=== PATIENT | female | born 1945 | race Caucasian/White ===

== ENCOUNTER 2018-07-21 14:45 | Emergency (ER) | payer MEDICARE, OTHER ==
[~2018-07-21] VITALS: Ht 149.9 cm; Wt 99.8 kg
--- OUTSIDE RECORDS SUMMARY | 2018-07-21 14:52 | XMS REPORT | Continuity of Care Document ---
Author Organization Unknown Address Unknown Allergies There is no data. Medications There is no data. Problems There is no data. Procedures There is no data. Results There is no data. Encounters ACCT No. Visit Date/Time Discharge Status Pt. Type Provider Facility Loc./Unit Complaint [id number] 07/09/2018 10:45:00 07/09/2018 23:59:59 CLS Outpatient SELF, JASEN Benjamin [facility]
--- NOTE | 2018-07-21 15:33 | ED Neurological Problem ---
General Chief Complaint: Neuro-Stroke Like Symptoms Stated Complaint: STROKE SYMPTOMS Source: patient, RN notes reviewed Exam Limitations: no limitations History of Present Illness Date Seen by Provider: Jul 21, 2018 Time Seen by Provider: 15:00 Timing/Duration: other Allergies and Home Medications Allergies Coded Allergies: meperidine (Verified Allergy, Unknown, 07/21/18) Physical Exam Vital Signs Capillary Refill : Height, Weight, BMI Height: '" Weight: lbs. oz. kg; BMI Method: Progress/Results/Core Measures Results/Orders Lab Results Laboratory Tests Test 07/21/18 15:13 07/21/18 15:22 07/21/18 15:46 Range/Units White Blood Count 6.5 4.3-11.0 10^3/uL Red Blood Count 5.06 4.35-5.85 10^6/uL Hemoglobin 14.9 11.5-16.0 G/DL Hematocrit 45 35-52 % Mean Corpuscular Volume 90 80-99 FL Mean Corpuscular Hemoglobin 29 25-34 PG Mean Corpuscular Hemoglobin Concent 33 32-36 G/DL Red Cell Distribution Width 14.3 10.0-14.5 % Platelet Count 175 130-400 10^3/uL Mean Platelet Volume 9.8 7.4-10.4 FL Neutrophils (%) (Auto) 73 42-75 % Lymphocytes (%) (Auto) 18 12-44 % Monocytes (%) (Auto) 6 0-12 % Eosinophils (%) (Auto) 3 0-10 % Basophils (%) (Auto) 0 0-10 % Neutrophils # (Auto) 4.7 1.8-7.8 X 10^3 Lymphocytes # (Auto) 1.2 1.0-4.0 X 10^3 Monocytes # (Auto) 0.4 0.0-1.0 X 10^3 Eosinophils # (Auto) 0.2 0.0-0.3 10^3/uL Basophils # (Auto) 0.0 0.0-0.1 10^3/uL Prothrombin Time 12.7 12.2-14.7 SEC INR Comment 0.9 0.8-1.4 Activated Partial Thromboplast Time 25 24-35 SEC Sodium Level 133 L 135-145 MMOL/L Potassium Level 8.2 *H 3.6-5.0 MMOL/L Chloride Level 102 98-107 MMOL/L Carbon Dioxide Level 21 21-32 MMOL/L Anion Gap 5-14 MMOL/L Blood Urea Nitrogen 36 H 7-18 MG/DL Creatinine 1.80 H 0.60-1.30 MG/DL Estimat Glomerular Filtration Rate 28 BUN/Creatinine Ratio 20 Glucose Level 253 H 70-105 MG/DL Calcium Level 9.5 8.5-10.1 MG/DL Corrected Calcium 9.1 8.5-10.1 MG/DL Total Bilirubin 0.2 0.1-1.0 MG/DL Aspartate Amino Transf (AST/SGOT) 13 5-34 U/L Alanine Aminotransferase (ALT/SGPT) 15 0-55 U/L Alkaline Phosphatase 72 40-136 U/L Total Protein 7.3 6.4-8.2 GM/DL Albumin 4.5 3.2-4.5 GM/DL Glucometer 208 H 70-110 MG/DL Urine Color YELLOW Urine Clarity CLEAR Urine pH 5.0 5-9 Urine Specific [place] 1.025 H 1.016-1.022 Urine Protein 1+ H NEGATIVE Urine Glucose (UA) TRACE H NEGATIVE Urine Ketones NEGATIVE NEGATIVE Urine Nitrite NEGATIVE NEGATIVE Urine Bilirubin NEGATIVE NEGATIVE Urine Urobilinogen 0.2 NORMAL MG/DL Urine Leukocyte Esterase 1+ H NEGATIVE Urine RBC (Auto) NEGATIVE NEGATIVE Urine RBC NONE /HPF Urine WBC 2.5 /HPF Urine Squamous Epithelial Cells 2+5 /HPF Urine Crystals NONE /LPF Urine Bacteria FEW H /HPF Urine Casts NONE /LPF Urine Mucus SMALL H /LPF Urine Culture Indicated NO My Orders Orders - ANTONI ABRAHAM DO Cbc With Automated Diff (07/21/18 15:13) Protime With Inr (07/21/18 15:13) Partial Thromboplastin Time (07/21/18 15:13) Comprehensive Metabolic Panel (07/21/18 15:13) Ua Culture If Indicated (07/21/18 15:13) Chest 1 View Ap/Pa Only (07/21/18 15:13) Ekg Tracing (07/21/18 15:13) Nothing By Mouth (07/21/18 Dinner) Accucheck Stat ONCE (07/21/18 15:13) Ed Iv/Invasive Line Start (07/21/18 15:13) Vital Signs Stroke Patient Q15M (07/21/18 15:13) Ct Head Wo-R/O Stroke (07/21/18 15:13) Monitor-Rhythm Ecg Trace Only (07/21/18 15:13) Dysphagia Screening Tool (07/21/18 15:13) Albuterol Pre-Mix Nebs (Rt) (Proventil (07/21/18 16:32) Svn Small Volume Nebulizer (07/21/18 16:32) D50w (Emergency) Syringe (Dextrose 50% 5 (07/21/18 16:45) Insulin (Regular) Human (Humulin R (Per (07/21/18 16:32) Sodium Polystyrene Sulfonate (Kayexalate (07/21/18 16:45) Ns Iv 1000 Ml (Sodium Chloride 0.9%) (07/21/18 16:45) Calcium Gluconate 10% Inj (Calcium Glu (07/21/18 17:45) Medications Given in ED Current Medications Medications Dose Ordered Sig/Beatriz Route Start Time Stop Time Status Last Admin Dose Admin Dextrose 50 ml ONCE ONCE IV 07/21/18 16:45 07/21/18 16:46 DC 07/21/18 17:07 50 ML Sodium Polystyrene Sulfonate 30 gm ONCE ONCE HI 07/21/18 16:45 07/21/18 16:46 DC 07/21/18 17:03 30 GM Departure Impression Primary Impression: Hyperkalemia Additional Impression: Right sided weakness Disposition: 02 XFER SHT-TRM HOSP Condition: Stable Transfer Time Spoke to Accepting Phy: 17:31 Transfer Progress Notes Discussed c/ Dr. oRssi (Neuro) and she will see the patient in consultation. Spoke c/ Dr. Alamo (Hospitalist) and he has accepted the patient in transfer. Transfer Facility: [facility] (patient's choice) Method of Transfer: EMS Departure-Patient Inst. Referrals: SELF,JASEN THORNTON (PCP/Family) Primary Care Physician ANTONI ABRAHAM DO Jul 21, 2018 15:33
--- NOTE | 2018-07-21 15:42 | Diagnostic Imaging Report ---
INDICATION: Shortness of air. COMPARISON: None. FINDINGS: Single frontal view of the chest demonstrates normal heart size and pulmonary vascularity. The lungs are well aerated and clear. No large pleural effusion or pneumothorax is seen. The visualized osseous structures show no acute abnormalities. IMPRESSION: 1. No acute cardiopulmonary process. Dictated by: Dictated on workstation # [id number]
--- NOTE | 2018-07-21 15:44 | Diagnostic Imaging Report ---
Indication: Right-sided weakness x3 days. Noncontrast brain CT is performed. There were no extra-axial fluid collections. No intracranial hemorrhage. No intracranial mass or mass effect. No midline shift. Ventricles are normal in size and position. There are no overt focal parenchymal abnormalities in the brain. Calvarial windows are unremarkable. Impression: Negative noncontrast brain CT. Consider MRI of the brain if symptoms persist. Dictated by: Dictated on workstation # [id number]
[2018-07-21 15:55] LABS: HEMATOCRIT 45 % (35-52); HEMOGLOBIN 14.9 G/DL (11.5-16.0); MEAN CORPUSCULAR HEMOGLOBIN 29 PG (25-34); MEAN CORPUSCULAR HGB CONC 33 G/DL (32-36); MEAN CORPUSCULAR VOLUME 90 FL (80-99); WHITE BLOOD COUNT 6.5 10^3/uL (4.3-11.0)
[2018-07-21 15:56] LABS: BASOPHILS % (AUTO) 0 % (0-10); EOSINOPHILS # (AUTO) 0.2 10^3/uL (0.0-0.3); EOSINOPHILS % (AUTO) 3 % (0-10); LYMPHOCYTES # (AUTO) 1.2 X 10^3 (1.0-4.0); LYMPHOCYTES % (AUTO) 18 % (12-44); MEAN PLATELET VOLUME 9.8 FL (7.4-10.4); MONOCYTES # (AUTO) 0.4 X 10^3 (0.0-1.0); MONOCYTES % (AUTO) 6 % (0-12); NEUTROPHILS # (AUTO) 4.7 X 10^3 (1.8-7.8); NEUTROPHILS % (AUTO) 73 % (42-75); PLATELET COUNT 175 10^3/uL (130-400); RED CELL DISTRIBUTION WIDTH 14.3 % (10.0-14.5)
[2018-07-21 16:00] LABS: BACTERIA,URINE FEW /HPF; BILIRUBIN,URINE NEGATIVE (NEGATIVE); CLARITY,URINE CLEAR; COLOR,URINE YELLOW; GLUCOSE, URINE (UA) TRACE (NEGATIVE); KETONES,URINE NEGATIVE (NEGATIVE); LEUKOCYTE ESTERASE ,URINE 1+ (NEGATIVE); NITRITE,URINE NEGATIVE (NEGATIVE); PROTEIN,URINE 1+ (NEGATIVE); SQUAMOUS EPITHELIAL CELL,UR 2+5 /HPF; UROBILINOGEN,URINE 0.2 MG/DL (NORMAL); WBC,URINE 2.5 /HPF
--- NOTE | 2018-07-21 16:00 | NUR ---
Jennifer nair in ED - 07/21/18 at 1846 by [email or web address] CRITICAL LAB POTASSIUM LEVEL 8.[address] ABRAHAM AT THIS TIME.
[2018-07-21 16:05] LABS: INR 0.9 (0.8-1.4); PROTHROMBIN TIME PATIENT 12.7 SEC (12.2-14.7)
[2018-07-21 16:24] LABS: ALANINE AMINOTRANSFERASE 15 U/L (0-55); ALBUMIN 4.5 GM/DL (3.2-4.5); ALKALINE PHOSPHATASE 72 U/L (40-136); BILIRUBIN,TOTAL 0.2 MG/DL (0.1-1.0); BUN/CREATININE RATIO 20; CALCIUM 9.5 MG/DL (8.5-10.1); CARBON DIOXIDE 21 MMOL/L (21-32); CHLORIDE 102 MMOL/L (98-107); GFR ESTIMATED 28; GLUCOSE 253 MG/DL (70-105); SODIUM 133 MMOL/L (135-145); TOTAL PROTEIN 7.3 GM/DL (6.4-8.2)
[2018-07-21 16:27] LABS: POTASSIUM 8.2 MMOL/L (3.6-5.0)
--- NOTE | 2018-07-21 16:30 | NUR ---
CRITICAL LAB VALUE OF POTASSIUM 8.[address] ABRAHAM AT THIS TIME.
[2018-07-21] MEDS ORDERED: RT-ALBUTEROL SULF 2.5 MG/3 ML PRE-MIX VIAL INH STA (16:32)
[2018-07-21] MEDS ORDERED: inSUlin (REGULAR) HUMAN 1 UNIT/0.01 ML (CHARGE PER UNIT) IJ STA (16:32)
[2018-07-21] MEDS ORDERED: SOD POLYSTERENE 15 GM/60 ML (KAYEXALATE) UNIT DOSE PR ONE (16:45)
[2018-07-21] MEDS ORDERED: NS IV 1000 ML 1,000 ML IV SCH (16:45)
[2018-07-21] MEDS ORDERED: DEXTROSE 50% 50 ML (IMS) SYR IV ONE (16:45)
[2018-07-21] MEDS ORDERED: CALCIUM GLUCONATE 10% INJ 4.65 MEQ in NS (IVPB) 50 ML IV ONE (17:45)
[2018-07-21] MEDS ORDERED: D5W 100 ML IVPB 100 ML IV ONE (18:00)
[2018-07-21] MEDS ORDERED: CALCIUM GLUC. 10% 4.65 MEQ/10 ML VIAL IV ONE (18:15)
[2018-07-21] MEDS ORDERED: ALLO100T PO (18:50)
[2018-07-21] MEDS ORDERED: SPIR25TA5 PO (18:50)
[2018-07-21] MEDS ORDERED: POTA20TA15 PO (18:50)
[2018-07-21] MEDS ORDERED: LISI-552 PO (18:50)
[2018-07-21] MEDS ORDERED: TRAM50TA2 PO (18:50)
[2018-07-21] MEDS ORDERED: METO100T12 PO (18:50)
[2018-07-21] MEDS ORDERED: BIOT10006 PO (18:50)
[2018-07-21] MEDS ORDERED: OMEP40CA36 PO (18:50)
[2018-07-21] MEDS ORDERED: INSU100C3 SQ (18:50)
[2018-07-21] MEDS ORDERED: ATOR20TA66 PO (18:50)
[2018-07-21] MEDS ORDERED: AMLO10TA7 PO (18:50)
[2018-07-21] MEDS ORDERED: INSU100I29 SQ (18:50)
[2018-07-21] MEDS ORDERED: GLIP5TAB13 PO (18:50)
[2018-07-21] MEDS ORDERED: ASPI81TA16 PO (18:50)
[2018-07-21 19:41] VITALS: BP 163/86
== END 2018-07-21 19:41 | disposition short-term general hospital (02) ==
LOC: EDUNIT# 14:45 → ER FS 14:48
DX: E87.5 Hyperkalemia (principal); M62.81 Muscle weakness (generalized); Z88.8 Allergy status to other drugs, medicaments and biological substances
CPT/HCPCS: 36415; 70450; 71045; 80053; 81000; 82962; 85025; 85610; 85730; 93005; 93041; 96361; 96374; 96375

== ENCOUNTER 2021-07-05 14:17 | Emergency (ER) | payer MEDICARE ==
[~2021-07-05] VITALS: Ht 149 cm; Wt 93.0 kg
[~2021-07-05 14:17] MED LIST: ALLO100T PO; AMLO-251 PO; ASPI81TA16 PO; ATOR20TA66 PO; BIOT10006 PO; GLIP5TAB13 PO; INSU100C3 SQ; INSU100I29 SQ; LISI20TA26 PO; METO100T12 PO; OMEP40CA6 PO; POTA-179 PO; SPIR25TA5 PO; TRM50T PO
--- NOTE | 2021-07-05 14:53 | ED Upper Extremity ---
General Chief Complaint: Upper Extremity Stated Complaint: RT ARM INJ Nursing Triage Note: patient was leaving her home, there was a ditch with water. patient jumped the ditch fell and injured right upper extremity Source: patient Exam Limitations: no limitations History of Present Illness Date Seen by Provider: Jul 05, 2021 Time Seen by Provider: 14:20 Initial Comments Patient is a 75-year-old female who presents with right arm and elbow pain after falling from standing. Patient was attempting to step over a pothole when she landed on concrete. Denies hitting her head, headache and neck pain. She is not on coagulation therapy. Onset: just prior to arrival Severity: moderate Pain/Injury Location: right arm, right elbow, right forearm Method of Injury: other Modifying Factors: Improves With Other Allergies and Home Medications Allergies Coded Allergies: meperidine (Verified Allergy, Unknown, 07/21/18) rosuvastatin (Verified Allergy, Unknown, 07/05/21) Patient Home Medication List Home Medication List Reviewed: Yes Allopurinol (Allopurinol) 100 Mg Tablet, 100 MG PO BID, (Reported) Entered as Reported by: BLANCA SCHERER on 07/21/181849 Amlodipine Besylate (Amlodipine Besylate) 10 Mg Tablet, 10 MG PO DAILY, (Reported) Entered as Reported by: BLANCA SCHERER on 07/21/181849 Aspirin (Low Dose Aspirin EC) 81 Mg Tablet.dr, 81 MG PO DAILY, (Reported) Entered as Reported by: BLANCA SCHERER on 07/21/181849 Atorvastatin Calcium (Atorvastatin Calcium) 20 Mg Tablet, 20 MG PO DAILY, (Reported) Entered as Reported by: BLANCA SCHERER on 07/21/181849 Biotin (Biotin) 10,000 Mcg Tab.rapdis, 10,000 MCG PO DAILY, (Reported) Entered as Reported by: BLANCA SCHERER on 07/21/181849 Glipizide (Glipizide) 5 Mg Tablet, 5 MG PO BID, (Reported) Entered as Reported by: BLANCA SCHERER on 07/21/181849 Insulin Aspart (Novolog) 300 Units/3 Ml Cartridge, 10-20 UNITS SQ TID, (Reported) Entered as Reported by: BLANCA SCHERER on 07/21/181849 Insulin Detemir (Levemir Flextouch) 100 Unit/1 Ml Insuln.pen, 60 UNIT SQ DAILY, (Reported) Entered as Reported by: BLANCA SCHERER on 07/21/181849 Lisinopril (Lisinopril) 20 Mg Tablet, 20 MG PO BID, (Reported) Entered as Reported by: BLANCA SCHERER on 07/21/181849 Metoprolol Tartrate (Metoprolol Tartrate) 100 Mg Tablet, 100 MG PO BID, (Reported) Entered as Reported by: BLANCA SCHERER on 07/21/181849 Omeprazole (Omeprazole) 40 Mg Capsule.dr, 40 MG PO DAILY, (Reported) Entered as Reported by: BLANCA SCHERER on 07/21/181849 Potassium Chloride (Potassium Chloride) 20 Meq Tab.er.prt, 30 MEQ PO DAILY, (Reported) Entered as Reported by: BLANCA SCHERER on 07/21/181849 Spironolactone (Spironolactone) 25 Mg Tablet, 25 MG PO DAILY, (Reported) Entered as Reported by: BLANCA SCHERER on 07/21/181849 Tramadol HCl (Tramadol HCl) 50 Mg Tablet, 50-100 MG PO Q6H PRN for PAIN-MILD, (Reported) Entered as Reported by: BLANCA SCHERER on 07/21/181849 Review of Systems Constitutional: see HPI EENTM: see HPI Respiratory: see HPI Cardiovascular: see HPI Musculoskeletal: joint pain, joint swelling, muscle stiffness Skin: no symptoms reported, see HPI Psychiatric/Neurological: No Symptoms Reported Past Dlfaomf-Jwbpux-Dizjgl Hx Patient Social History Tobacco Use?: Yes Substance use?: No Alcohol Use?: No Immunizations Up To Date Influenza Vaccine Up-to-Date: Yes; Up-to-Date Seasonal Allergies Seasonal Allergies: No Past Medical History Surgery/Hospitalization HX: appendectomy,cholecystectomy,hystrectomy, hernia repair, Surgeries: Yes Nephrectomy Respiratory: No Cardiac: Yes High Cholesterol, Hypertension Neurological: No Genitourinary: No Gastrointestinal: Yes Gastroesophageal Reflux Musculoskeletal: Yes Gout Endocrine: Yes Diabetes, Insulin dep HEENT: No Cancer: No Psychosocial: No Integumentary: No Blood Disorders: No Physical Exam Vital Signs Vital Signs - First Documented 07/05/21 14:33 Temp 36.8 Pulse 70 Resp 20 B/P (MAP) 145/103 (117) Pulse Ox 98 O2 Delivery Room Air Capillary Refill : Less Than 3 Seconds Height, Weight, BMI Height: 4'11.00" Weight: 220lbs. oz. 99.689952nw; 41.00 BMI Method:Stated General Appearance: no apparent distress HEENT: PERRL/EOMI, pharynx normal Neck: non-tender, full range of motion, supple Cardiovascular: normal peripheral pulses, regular rate, rhythm Respiratory: lungs clear Gastrointestinal: non tender, soft Back: normal inspection, no CVA tenderness Shoulder: normal inspection, non-tender, normal ROM Elbow/Forearm: Right (Humerus, elbow and forearm soft tissue tenderness, pain range of motion. No deformities.) Progress/Results/Core Measures Results/Orders My Orders Orders - MARIA ELENA LEYVA DO Humerus 2 View Right (07/05/21 14:38) Elbow 3 View Right (07/05/21 14:38) Forearm 2 View Right (07/05/21 14:38) Vital Signs/I&O 07/05/21 14:33 Temp 36.8 Pulse 70 Resp 20 B/P (MAP) 145/103 (117) Pulse Ox 98 O2 Delivery Room Air Blood Pressure Mean: 117 Departure Communication (Admissions) XR right humerus/elbow/forearm: Acute right humeral head fracture Patient placed in splint and sling with orthopedic referral. No neurovascular deficits. Pain addressed. Impression Primary Impression: Radial head fracture, closed Disposition: 01 HOME, SELF-CARE Condition: Stable Departure-Patient Inst. Decision time for Depature: 14:53 Referrals: ABA VILLASEÑOR MD (PCP) Primary Care Physician Patient Instructions: Radius Fracture (DC) Add. Discharge Instructions: Please wear splint and sling. Take ibuprofen and tramadol as needed for pain. Follow-up with orthopedic physician in the next 3 to 5 days for reevaluation. Return to the ED if new or worsening symptoms. All discharge instructions reviewed with patient and/or family. Voiced understanding. Scripts Tramadol HCl (Tramadol HCl) 50 Mg Tablet 50-100 MG PO Q6H PRN for PAIN for 3 Days, #20 TAB 0 Refills Prov: MARIA ELENA LEYVA DO 07/05/21 MARIA ELENA LEYVA DO Jul 05, 2021 14:53
--- NOTE | 2021-07-05 14:54 | Diagnostic Imaging Report ---
INDICATION: Right humeral pain. AP and lateral views of the right humerus are obtained. No fracture or acute bony abnormality is seen. IMPRESSION: Negative right humerus. Dictated by: Dictated on workstation # [id number]
--- NOTE | 2021-07-05 14:58 | Diagnostic Imaging Report ---
INDICATION: Fall with right forearm pain. TECHNIQUE: AP and lateral views of the right forearm were obtained at 2:48 PM. FINDINGS: There is an acute fracture of the radial head. The remainder of the radius and ulna is intact. IMPRESSION: Acute radial head fracture. Dictated by: Dictated on workstation # [id number]
--- NOTE | 2021-07-05 15:03 | Diagnostic Imaging Report ---
INDICATION: Pain after fall. EXAMINATION: Right elbow from 07/05/2021. FINDINGS: Three views of the elbow. There is elevation of the anterior fat pad secondary to a joint effusion. A displaced fracture of the radial head is noted with the fracture fragment displaced by approximately 3 mm. Osseous fragments adjacent to the lateral epicondyle appear well corticated, perhaps due to a history of lateral epicondylitis. The remaining osseous structures are intact. No dislocations. IMPRESSION: 1. Radial head fracture with secondary joint effusion. 2. Not mentioned above, there is nonspecific hyperdensity along the anterior aspect of the joint of uncertain etiology. This could represent a focal calcification. Follow-up recommended for reevaluation. Dictated by: Dictated on workstation # [id number]
[2021-07-05] MEDS ORDERED: TRM50T PO (15:12)
[2021-07-05 16:14] VITALS: BP 172/86
== END 2021-07-05 15:55 | disposition home or self-care (01) ==
LOC: EDUNIT# 14:17 → ER FS 14:21
DX: S52.121A Displaced fracture of head of right radius, initial encounter for closed fracture (principal); E11.9 Type 2 diabetes mellitus without complications; Z79.4 Long term (current) use of insulin; W18.30XA Fall on same level, unspecified, initial encounter
CPT/HCPCS: 29105; 73060; 73080; 73090

== ENCOUNTER → 2021-07-13 | Outpatient (CLI) | payer MEDICARE | LOC: ORTHO 16:36 | PROVIDERS: ATTEND Orthopaedic Surgery | DX: S52.121D Displaced fracture of head of right radius, subsequent encounter for closed fracture with routine healing (principal); X58.XXXD Exposure to other specified factors, subsequent encounter ==

== ENCOUNTER → 2021-07-24 | Outpatient (CLI) | payer MEDICARE ==
--- NOTE | 2021-07-24 15:40 | Diagnostic Imaging Report ---
INDICATION: Fracture of the head of the radius. Followup. EXAMINATION: Right elbow, 3 views, on 07/24/2021. COMPARISON: 07/05/2021. FINDINGS: Again seen is a fracture of the radial head with incomplete healing at this time. A small avulsion fracture fragment is seen along its anterior border. A nonspecific linear density at the radiocapitellar joint space is noted, stable from previous imaging. There are densities along the lateral aspect of the lateral epicondyle, perhaps due to old fracture or heterotopic ossification. These findings are stable from previous imaging. Spurring throughout the joint is noted. There is a small persistent joint effusion. IMPRESSION: Stable appearing radial head fracture with the remaining changes chronic in appearance. Dictated by: Dictated on workstation # [id number]
== END ==
LOC: RAD FS 14:56
PROVIDERS: ATTEND Orthopaedic Surgery
DX: S52.121D Displaced fracture of head of right radius, subsequent encounter for closed fracture with routine healing (principal); X58.XXXD Exposure to other specified factors, subsequent encounter
CPT/HCPCS: 73080

== ENCOUNTER → 2021-07-27 | Outpatient (CLI) | payer MEDICARE | LOC: ORTHO 14:01 | PROVIDERS: ATTEND Orthopaedic Surgery | DX: S52.501D Unspecified fracture of the lower end of right radius, subsequent encounter for closed fracture with routine healing (principal); X58.XXXD Exposure to other specified factors, subsequent encounter ==

== ENCOUNTER → 2021-08-18 | Outpatient (CLI) | payer MEDICARE ==
--- NOTE | 2021-08-18 15:43 | Diagnostic Imaging Report ---
INDICATION: Closed fracture of the radial head, pain. COMPARISON: 07/24/2021. TECHNIQUE: Three radiographs of the right elbow dated 08/18/2021. FINDINGS: Fracturing of the radial head with intra-articular extension to the elbow joint is again identified. Fracture lucency is better visualized than on the prior examination. There is slight blurring of the fracture margins. No definite osseous bridging seen at this time. No new fracture or dislocation. No destructive osseous process. Calcifications adjacent to the medial and lateral epicondyle are again identified and stable. A small elbow joint effusion is again identified and stable. Improved soft tissue swelling involving the dorsum of the elbow and forearm. IMPRESSION: Persistent fracturing of the radial head with intra-articular extension remaining in stable alignment. Fracture plane is better visualized on this examination, which could relate to resorption and early healing. Recommend continued radiographic follow-up to ensure healing as no definite osseous bridging is identified at this time. No new acute osseous abnormality with stable small elbow joint effusion. Dictated by: Dictated on workstation # [id number]
== END ==
LOC: RAD FS 14:49
PROVIDERS: ATTEND Orthopaedic Surgery
DX: S52.121D Displaced fracture of head of right radius, subsequent encounter for closed fracture with routine healing (principal); X58.XXXD Exposure to other specified factors, subsequent encounter
CPT/HCPCS: 73080

== ENCOUNTER → 2021-08-24 | Outpatient (CLI) | payer MEDICARE | LOC: ORTHO 13:30 | PROVIDERS: ATTEND Orthopaedic Surgery | DX: S52.121D Displaced fracture of head of right radius, subsequent encounter for closed fracture with routine healing (principal); X58.XXXD Exposure to other specified factors, subsequent encounter ==

== ENCOUNTER → 2021-09-18 | Outpatient (CLI) | payer MEDICARE ==
--- NOTE | 2021-09-18 14:51 | Diagnostic Imaging Report ---
Indication: Followup right elbow fracture. Time of Exam: 1:27 PM Correlation is made with prior right elbow radiographs from 08/18/2021. Fracture of the head of the radius with intra-articular extension is again noted. Fracture line remains clearly visible. Alignment is stable. Benign calcifications along the medial and lateral distal humerus again noted. Proximal ulna is intact. Impression: Intra-articular radius head fracture, similar to the examination from 08/18/2021. Fracture line remains clearly visible. Dictated by: Dictated on workstation # [id number]
== END ==
LOC: RAD FS 13:15
PROVIDERS: ATTEND Orthopaedic Surgery
DX: S52.121D Displaced fracture of head of right radius, subsequent encounter for closed fracture with routine healing (principal); X58.XXXD Exposure to other specified factors, subsequent encounter
CPT/HCPCS: 73080

== ENCOUNTER → 2021-09-21 | Outpatient (CLI) | payer MEDICARE | LOC: ORTHO 15:19 | PROVIDERS: ATTEND Orthopaedic Surgery | DX: S52.121A Displaced fracture of head of right radius, initial encounter for closed fracture (principal); X58.XXXA Exposure to other specified factors, initial encounter ==

== ENCOUNTER → 2021-11-06 | Outpatient (CLI) | payer MEDICARE ==
--- NOTE | 2021-11-06 15:56 | Diagnostic Imaging Report ---
INDICATION: Right elbow fracture, followup. TIME OF EXAM: 1:37 PM. COMPARISON: Correlation is made with the prior elbow radiographs from 09/18/2021. FINDINGS: Three views of the right elbow were obtained. The intra-articular radius head fracture is again noted. The fracture line remains clearly visible. No other fractures are seen. There is no joint effusion. Benign calcifications at the level of the lateral elbow are noted, similar to the prior study. IMPRESSION: The intra-articular radius head fracture remains clearly visible and similar in appearance to the exam from 09/18/2021. Dictated by: Dictated on workstation # [id number]
== END ==
LOC: RAD FS 13:21
PROVIDERS: ATTEND Orthopaedic Surgery
DX: S42.401D Unspecified fracture of lower end of right humerus, subsequent encounter for fracture with routine healing (principal); X58.XXXD Exposure to other specified factors, subsequent encounter
CPT/HCPCS: 73080

== ENCOUNTER → 2021-11-09 | Outpatient (CLI) | payer MEDICARE | LOC: ORTHO 15:44 | PROVIDERS: ATTEND Orthopaedic Surgery | DX: S52.121A Displaced fracture of head of right radius, initial encounter for closed fracture (principal); X58.XXXA Exposure to other specified factors, initial encounter ==

== ENCOUNTER 2022-01-18 17:03 | Emergency (ER) | payer MEDICARE ==
[~2022-01-18] VITALS: Ht 149.9 cm; Wt 90.7 kg
--- NOTE | 2022-01-18 17:24 | ED Lower Extremity ---
General Chief Complaint: Lower Extremity Stated Complaint: L LEG PAIN Source: patient Exam Limitations: no limitations History of Present Illness Date Seen by Provider: Jan 18, 2022 Time Seen by Provider: 17:07 Initial Comments 76-year-old female with past medical history of hypertension, hyperlipidemia, diabetes coming in due to left knee pain. Been insidious in onset, worsening over the past 3 weeks. Severe pain today when she felt a pop. She did not twis t it or have any trauma. No swelling that she knows of. Takes tramadol at home which does seem to help with the pain. Denies any fever, redness, asymmetric swelling in her legs, history of DVT or PE, or any other concerns Allergies and Home Medications Allergies Coded Allergies: meperidine (Verified Allergy, Unknown, 07/21/18) rosuvastatin (Verified Allergy, Unknown, 07/05/21) Patient Home Medication List Home Medication List Reviewed: Yes Allopurinol (Allopurinol) 100 Mg Tablet, 100 MG PO BID, (Reported) Entered as Reported by: BLANCA SCHERER on 07/21/181849 Amlodipine Besylate (Amlodipine Besylate) 10 Mg Tablet, 10 MG PO DAILY, (Reported) Entered as Reported by: BLANCA SCHERER on 07/21/181849 Aspirin (Low Dose Aspirin EC) 81 Mg Tablet.dr, 81 MG PO DAILY, (Reported) Entered as Reported by: BLANCA SCHERER on 07/21/181849 Atorvastatin Calcium (Atorvastatin Calcium) 20 Mg Tablet, 20 MG PO DAILY, (Reported) Entered as Reported by: BLANCA SCHERER on 07/21/181849 Biotin (Biotin) 10,000 Mcg Tab.rapdis, 10,000 MCG PO DAILY, (Reported) Entered as Reported by: BLANCA SCHERER on 07/21/181849 Glipizide (Glipizide) 5 Mg Tablet, 5 MG PO BID, (Reported) Entered as Reported by: BLANCA SCHERER on 07/21/181849 Insulin Aspart (Novolog) 300 Units/3 Ml Cartridge, 10-20 UNITS SQ TID, (Reported) Entered as Reported by: BLANCA SCHERER on 07/21/181849 Insulin Detemir (Levemir Flextouch) 100 Unit/1 Ml Insuln.pen, 60 UNIT SQ DAILY, (Reported) Entered as Reported by: BLANCA SCHERER on 07/21/181849 Lisinopril (Lisinopril) 20 Mg Tablet, 20 MG PO BID, (Reported) Entered as Reported by: BLANCA SCHERER on 07/21/181849 Metoprolol Tartrate (Metoprolol Tartrate) 100 Mg Tablet, 100 MG PO BID, (Reported) Entered as Reported by: BLANCA SCHERER on 07/21/181849 Omeprazole (Omeprazole) 40 Mg Capsule.dr, 40 MG PO DAILY, (Reported) Entered as Reported by: BLANCA SCHERER on 07/21/181849 Potassium Chloride (Potassium Chloride) 20 Meq Tab.er.prt, 30 MEQ PO DAILY, (Reported) Entered as Reported by: BLANCA SCHERER on 07/21/181849 Spironolactone (Spironolactone) 25 Mg Tablet, 25 MG PO DAILY, (Reported) Entered as Reported by: BLANCA SCHERER on 07/21/181849 Tramadol HCl (Tramadol HCl) 50 Mg Tablet, 50-100 MG PO Q6H PRN for PAIN-MILD, (Reported) Entered as Reported by: BLANCA SCHERER on 07/21/181849 Tramadol HCl (Tramadol HCl) 50 Mg Tablet, 50-100 MG PO Q6H PRN for PAIN Prescribed by: MARIA ELENA LEYVA on 07/05/21 1512 Review of Systems Constitutional: No fever EENTM: no symptoms reported Respiratory: no symptoms reported Cardiovascular: no symptoms reported Gastrointestinal: no symptoms reported Genitourinary: no symptoms reported Musculoskeletal: see HPI Skin: no symptoms reported Psychiatric/Neurological: No Symptoms Reported All Other Systems Reviewed Negative Unless Noted: Yes Past Dpzjkdv-Cttotf-Qxcztm Hx Patient Social History Tobacco Use?: No Seasonal Allergies Seasonal Allergies: No Past Medical History Surgery/Hospitalization HX: appendectomy,cholecystectomy,hystrectomy, hernia repair, Surgeries: Yes Nephrectomy Respiratory: No Cardiac: Yes High Cholesterol, Hypertension Neurological: No Genitourinary: No Gastrointestinal: Yes Gastroesophageal Reflux Musculoskeletal: Yes Gout Endocrine: Yes Diabetes, Insulin dep HEENT: No Cancer: No Psychosocial: No Integumentary: No Blood Disorders: No Physical Exam Vital Signs Vital Signs - First Documented 01/18/22 17:09 Temp 36.8 Pulse 82 Resp 17 B/P (MAP) 183/159 (167) O2 Delivery Room Air Capillary Refill : Height, Weight, BMI Height: 4'11.00" Weight: 220lbs. oz. 99.097591sv; 41.00 BMI Method:Stated General Appearance: WD/WN, no apparent distress HEENT: PERRL/EOMI, normal ENT inspection, pharynx normal Neck: non-tender, full range of motion, supple, normal inspection Cardiovascular: regular rate, rhythm, no edema, no murmur Respiratory: chest non-tender, lungs clear, normal breath sounds, no respiratory distress, no accessory muscle use Hips: bilateral hip non-tender, bilateral hip normal inspection, bilateral hip normal range of motion, bilateral hip no evidence of injury Knees: right knee non-tender, right knee normal inspection, right knee normal range of motion, right knee no evidence of injury; left knee other (Tender in the posterior aspect of her leg and medial greater than lateral joint line, there is trace effusion, bilateral lower extremities with 2+ edema which is equal, no redness, no pain with calf squeezing, negative Homans' sign, neurovascularly intact bilateral lower extremities) Neurologic/Tendon: normal sensation, normal motor functions, normal tendon functions Neurologic/Psychiatric: no motor/sensory deficits, alert, normal mood/affect Skin: normal color, warm/dry Lymphatic: no adenopathy Procedures/Interventions The patient was verbally consented for a left knee intra-articular injection of bupivacaine and Depo-Medrol. Discussed pain, infection, bleeding, damage to un derlying structures. Patient was agreeable to this. The skin was prepped with chlorhexidine and allowed to fully dry. A 22-gauge needle was inserted and 5 cc of 0.5% bupivacaine and 40 mg of Depo-Medrol were injected without complication. Progress/Results/Core Measures Results/Orders My Orders Orders - CHANTALE JOSE MD Knee 3 View Left (01/18/22 17:20) Hydrocodone/Apap 5/325 Tablet (Lortab 5 (01/18/22 17:30) Methylprednisolone Acetate Inj (Depo-Med (01/18/22 17:45) Bupivacaine 0.5% Injection (Sensorcaine (01/18/22 17:45) Ct Extremity Lower Left Wo (01/18/22 17:42) Medications Given in ED Current Medications Medications Dose Ordered Sig/Beatriz Route Start Time Stop Time Status Last Admin Dose Admin Acetaminophen/ Hydrocodone Bitart 1 ea ONCE ONCE PO 01/18/22 17:30 01/18/22 17:31 DC 01/18/22 17:42 1 EA Bupivacaine HCl 30 ml ONCE ONCE INJ 01/18/22 17:45 01/18/22 17:46 DC 01/18/22 18:33 30 ML Methylprednisolone Acetate 40 mg ONCE ONCE IA 01/18/22 17:45 01/18/22 17:46 DC 01/18/22 18:33 40 MG Vital Signs/I&O 01/18/22 17:09 Temp 36.8 Pulse 82 Resp 17 B/P (MAP) 183/159 (167) O2 Delivery Room Air Progress Progress Note : Progress Note 76-year-old female with above history coming in due to left knee pain atraumatic. ABCs were intact and vitals were stable on presentation. Physical exam with a knee effusion and tenderness in the posterior aspect. I did a [id number]-zhdy ultrasound, and her popliteal vein and proximal leg veins are compressible with no signs of obvious DVT. Also, the swelling in the bilateral legs is equal with no redness or calf tenderness. X-ray with questionable tibial plateau fracture. CT with no acute fracture but does have an effusion. She was injected with bupivacaine and Depo-Medrol to help with symptoms given its most likely arthritis related. I suspect she had a Merino's cyst that ruptured. I will have her follow-up with orthopedics as an outpatient. Diagnostic Imaging Diagonstic Imaging: Xray (left knee), CT (left knee) Comments [facility]. [place], [place] NAME: MICHAELLE ALTAMIRANO [facility] REC#: [id number] PT STATUS: REG ER : 1945 PHYSICIAN: CHANTALE JOSE MD ADMIT DATE: 01/18/22/ER FS Draft Date of Exam:01/18/22 CT EXTREMITY LOWER LEFT WO PROCEDURE: CT left lower extremity without contrast. TECHNIQUE: Multiple contiguous axial images were obtained through the left lower extremity without the use of intravenous contrast. Sagittal and coronal reformations were then performed. Auto Exposure Controls were utilized during the CT exam to meet ALARA standards for radiation dose reduction. INDICATION: Knee pain. COMPARISON: Radiographs from earlier the same day. FINDINGS: By CT imaging, there is no identified fracture. The previous irregularity of the lateral tibial plateau appears to be due to degenerative spurring. 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 There is a moderate knee joint effusion. There is no loose body. There is some mild regional soft tissue edema and a few small varicose veins. There is no focal hematoma. IMPRESSION: 1. No identified left knee fracture by CT imaging. 2. Tricompartmental osteoarthritic changes, most advanced within the patellofemoral compartment and medial compartment. 3. Moderate joint effusion without radiodense loose body. 4. Mild regional subcutaneous edema and small varicose veins. Dictated on workstation # [id number] Dict: 01/18/22 1818 Trans: 01/18/22 1824 [id number] Interpreted by: QUYNH RANGEL MD Electronically signed by: Departure Impression Primary Impression: Effusion, left knee Additional Impression: Arthritis of left knee Disposition: 01 HOME, SELF-CARE Condition: Stable Departure-Patient Inst. Decision time for Depature: 18:46 Referrals: ABA VILLASEÑOR MD (PCP/Family) Primary Care Physician Patient Instructions: Swollen Joints (DC) Add. Discharge Instructions: I suspect you had a Merino's cyst on your left knee that ruptured. We did not see any evidence of a blood clot. There is no fracture in your knee as well. You do have fluid in your knee which is causing a lot of your discomfort. This is ultimately caused from arthritis. Please follow-up with Dr. Singh regarding this. Continue to take your tramadol as needed. CHANTALE JOSE MD Jan 18, 2022 17:24
[2022-01-18] MEDS ORDERED: HYDROcodone/APAP 5 MG/325 MG (LORTAB) TAB PO ONE (17:30)
--- NOTE | 2022-01-18 17:40 | Diagnostic Imaging Report ---
INDICATION: Knee pain. FINDINGS: There are tricompartmental osteoarthritic changes present within the knee with most advanced joint space loss within the patellofemoral compartment. There is mild joint space loss within the medial compartment. There are tricompartmental osteophytes and spurs. There is no significant joint effusion. On the lateral view, there is some questionable slight irregularity demonstrated along the lateral tibial plateau. The soft tissues are otherwise unremarkable. IMPRESSION: 1. There is some questionable irregularity of the lateral tibial plateau on the lateral view. A nondepressed tibial plateau fracture could not be completely excluded, though there is no significant joint effusion. Consider further imaging with CT. 2. Background features of tricompartmental osteoarthritis, most advanced within the patellofemoral joint. Dictated by: Dictated on workstation # [id number]
[2022-01-18] MEDS ORDERED: methylPREDNISolone 40 MG/ML (DEPO MEDROL) VIAL IA ONE (17:45)
[2022-01-18] MEDS ORDERED: BUPIVACAINE 0.5% 30 ML (SENSORCAINE) VIAL INJ ONE (17:45)
--- NOTE | 2022-01-18 18:24 | Diagnostic Imaging Report ---
PROCEDURE: CT left lower extremity without contrast. TECHNIQUE: Multiple contiguous axial images were obtained through the left lower extremity without the use of intravenous contrast. Sagittal and coronal reformations were then performed. Auto Exposure Controls were utilized during the CT exam to meet ALARA standards for radiation dose reduction. INDICATION: Knee pain. COMPARISON: Radiographs from earlier the same day. FINDINGS: By CT imaging, there is no identified fracture. The previous irregularity of the lateral tibial plateau appears to be due to degenerative spurring. 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 There is a moderate knee joint effusion. There is no loose body. There is some mild regional soft tissue edema and a few small varicose veins. There is no focal hematoma. IMPRESSION: 1. No identified left knee fracture by CT imaging. 2. Tricompartmental osteoarthritic changes, most advanced within the patellofemoral compartment and medial compartment. 3. Moderate joint effusion without radiodense loose body. 4. Mild regional subcutaneous edema and small varicose veins. Dictated by: Dictated on workstation # [id number]
[2022-01-18 18:52] VITALS: BP 169/94
== END 2022-01-18 18:51 | disposition home or self-care (01) ==
LOC: EDUNIT# 17:03 → ER FS 17:04
DX: M17.12 Unilateral primary osteoarthritis, left knee (principal); M25.462 Effusion, left knee; E11.9 Type 2 diabetes mellitus without complications; Z28.310 Unvaccinated for COVID-19; X50.1XXA Overexertion from prolonged static or awkward postures, initial encounter
CPT/HCPCS: 73562; 73700

== ENCOUNTER → 2022-05-22 | Outpatient (CLI) | payer MEDICARE | LOC: ORTHO 14:11 | PROVIDERS: ATTEND Orthopaedic Surgery | DX: M17.9 Osteoarthritis of knee, unspecified (principal) | CPT/HCPCS: 99213 ==

== ENCOUNTER → 2022-06-12 | Outpatient (CLI) | payer MEDICARE | LOC: ORTHO 15:22 | PROVIDERS: ATTEND Orthopaedic Surgery | DX: M17.12 Unilateral primary osteoarthritis, left knee (principal) | CPT/HCPCS: 20610 ==